=== PATIENT | female | born 1985 | race African-American/Black ===

== ENCOUNTER 2016-12-23 09:32 | Inpatient (IN) | payer MEDICAID, OTHER ==
[~2016-12-23 09:32] MED LIST: ATIVAN0.5 M1 PO; CHLORASEPTIC SO2 LOZ MT; COMPAZINE10 MG PO; MAGIC MOUTHWASH PO; MONO-LINYAH 281 EACH PO; NAPROXEN500 M1 PO; NICOTINE PATCH1 EAC1 TD; NICOTINE PATCH1 EACH TD; NO HOME MEDICATION XX; NORCO 5-325 TA1 EACH PO; PROAIR HFA8.5 GM IH; PROMETH-CODEIN 65 ML PO; PROMETHAZINE-C118 ML PO; TUSSIONEX PENN480 ML PO; TYLENOL325 M2 PO; VENTOLIN HFA18 G2 PO; ZITHROMAX250 M1 PO; ZOFRAN4 M2 PO; ZOLOFT100 M1 PO; ZOLOFT25 M1 PO
[2016-12-23] MEDS ORDERED: K-TAB ER10 MEQ PO (10:04)
[2016-12-24 04:36] LABS: ALB/GLOB RATIO 0.8 (0.8-2.0); ALBUMIN 3.5 g/dl (3.5-5.0); ALKALINE PHOSPHATASE 85 U/L (33-138); ALT/SGPT 17 U/L (12-78); BILIRUBIN,TOTAL 0.2 mg/dl (0-1.5); BLOOD UREA NITROGEN 12 mg/dl (6-24); CALCIUM 9.2 mg/dl (8.5-10.5); CARBON DIOXIDE-VENOUS 24 mmol/L (22-32); CHLORIDE 108 mmol/l (96-110); GLUCOSE 239 mg/dL (70-110); SODIUM 139 mmol/L (135-145); eGFR VALUE FOR BLACK 88 mL/Min
[2016-12-24 05:01] LABS: ANION GAP 12 mmol/L (0-20); AST/SGOT 14 U/L (10-40); MAGNESIUM 1.8 mg/dl (1.3-2.6); POTASSIUM 4.5 mmol/L (3.7-5.1)
[2016-12-25 17:06] LABS: URINE BILIRUBIN NEGATIVE (NEG); URINE BLOOD SMALL (NEG); URINE GLUCOSE (UA) SMALL (NEG); URINE KETONE LARGE (NEG); URINE LEUKOCYTE ESTERASE NEGATIVE (NEG); URINE NITRITE NEGATIVE (NEG); URINE PROTEIN NEGATIVE (NEG); URINE SPECIFIC GRAVITY 1.015 (1.003-1.030)
[2016-12-25 17:09] LABS: URINE APPEARANCE HAZY; URINE COLOR YELLOW
[2016-12-25 17:34] LABS: URINE AMORPHOUS 1+; URINE WBC RARE /[HPF] (0-5)
[2016-12-26 05:48] LABS: ALB/GLOB RATIO 0.8 (0.8-2.0); ALKALINE PHOSPHATASE 54 U/L (33-138); ALT/SGPT 15 U/L (12-78); BILIRUBIN,TOTAL 0.5 mg/dl (0-1.5); BLOOD UREA NITROGEN 10 mg/dl (6-24); CALCIUM 8.4 mg/dl (8.5-10.5); CARBON DIOXIDE-VENOUS 24 mmol/L (22-32); CHLORIDE 109 mmol/l (96-110); CREATININE 0.79 mg/dl (0.50-1.10); GLUCOSE 83 mg/dL (70-110); SODIUM 139 mmol/L (135-145); eGFR VALUE FOR BLACK >90 mL/Min
[2016-12-26 05:59] LABS: ANION GAP 10 mmol/L (0-20); AST/SGOT 18 U/L (10-40); MAGNESIUM 2.1 mg/dl (1.3-2.6); POTASSIUM 4.4 mmol/L (3.7-5.1)
[2016-12-26 16:25] LABS: URINE APPEARANCE HAZY; URINE BILIRUBIN NEGATIVE (NEG); URINE BLOOD SMALL (NEG); URINE COLOR PALE YELLOW; URINE GLUCOSE (UA) NEGATIVE (NEG); URINE KETONE NEGATIVE (NEG); URINE LEUKOCYTE ESTERASE POSITIVE (NEG); URINE NITRITE NEGATIVE (NEG); URINE PROTEIN NEGATIVE (NEG)
[2016-12-26 16:38] LABS: URINE BACTERIA 4+
== END 2016-12-26 16:39 | DRG 847 ==
LOC: 5WF 09:32 → ORE 12-24 14:22 → PACU 12-24 14:52 → 5WF 12-24 15:40
PROVIDERS: Internal Medicine Hematology & Oncology; Physician Assistant Medical; ADMIT Internal Medicine Hematology & Oncology
PROC: 0CDXXZ0 Extraction of Lower Tooth, Single, External Approach (ICD-10-PCS; principal; 2016-12-23)
DX: Z51.11 Encounter for antineoplastic chemotherapy (principal); C85.90 Non-Hodgkin lymphoma, unspecified, unspecified site; R11.0 Nausea; K04.7 Periapical abscess without sinus
CPT/HCPCS: J1100; J1626; J1650; J2469; J2505; J7030; J9045; J9181; J9208; J9209

== ENCOUNTER 2017-01-27 19:47 | Emergency (ER) | payer MEDICAID ==
[~2017-01-27 19:47] MED LIST changes: +K-TAB ER10 MEQ PO
[2017-01-27 21:01] LABS: BASO % 0.6 % (0-2); BASO ABSOLUTE COUNT 0.1 tho/cmm (0.0-0.2); EOSINOPHIL ABSOLUTE COUNT 0.2 tho/cmm (0.0-0.7); HCT-HEMATOCRIT 29.1 % (34.0-49.0); HGB-HEMOGLOBIN 9.8 gm/dl (12.0-15.5); IMMATURE GRANULOCYTES ABSOLUTE 0.03 tho/cmm (0-0.03); IMMATURE GRANULOCYTES PERCENT 0.3 % (0-0.3); LYMPH % 16.4 % (20-45); LYMPH ABSOLUTE COUNT 1.8 tho/cmm (0.8-4.5); MCH (MEAN CORPUSCULAR HGB) 29.3 pg (28.0-32.0); MCHC MEAN CORPUSCULAR HGB CONC 33.7 % (32.0-36.0); MCV (MEAN CELL VOLUME) 87.1 fl (82.0-96.0); MEAN PLATELET VOLUME 9.4 cmc (9.4-12.4); MONO % 7.8 % (0-12); MONOCYTE ABSOLUTE COUNT 0.8 tho/cmm (0.0-1.2); NEUTROPHIL ABSOLUTE COUNT 7.8 tho/cmm (1.6-8.0); NEUTROPHIL-AUTOMATED 7.8 tho/cmm (1.6-8.0); NEUTROPHILS % 72.9 % (40-80); PLATELET COUNT 396 tho/cmm (150-450); RED BLOOD COUNT 3.34 mil/cmm (4.00-5.20); RED CELL DISTRIBUTION WIDTH 17.6 % (12.4-16.4); WHITE BLOOD COUNT 10.8 tho/cmm (4.0-10.0)
[2017-01-27 21:13] LABS: ANION GAP 15 mmol/L (0-20); BLOOD UREA NITROGEN 7 mg/dl (6-24); CALCIUM 8.5 mg/dl (8.5-10.5); CARBON DIOXIDE-VENOUS 24 mmol/L (22-32); CHLORIDE 106 mmol/l (96-110); CREATININE 1.02 mg/dl (0.50-1.10); GLUCOSE 123 mg/dL (70-110); POTASSIUM 3.5 mmol/L (3.7-5.1); SODIUM 141 mmol/L (135-145); eGFR VALUE FOR BLACK 86 mL/Min
[2017-01-27] MEDS ORDERED: NORCO 5-325 TA1 EACH PO (22:51)
[2017-01-27] MEDS ORDERED: KEFLEX500 M4 PO (22:51)
[2017-01-27] MEDS ORDERED: BACTRIM DS TAB1 EAC2 PO (22:51)
== END 2017-01-27 23:17 ==
LOC: EDMED 19:47
PROVIDERS: Emergency Medicine
PROC: 0H97XZZ Drainage of Abdomen Skin, External Approach (ICD-10-PCS; principal; 2017-01-27)
DX: K61.1 Rectal abscess (principal)
CPT/HCPCS: J1170; J2405; Q9967

== ENCOUNTER 2017-02-25 19:46 | Emergency (ER) | payer MEDICAID ==
[~2017-02-25 19:46] MED LIST changes: +BACTRIM DS TAB1 EAC2 PO; +KEFLEX500 M4 PO
[2017-02-25] MEDS ORDERED: PRENATAL TABLE1 EAC3 PO (20:59)
[2017-02-25 22:01] LABS: BASO % 0.6 % (0-2); EOS % 5.2 % (0-7); EOSINOPHIL ABSOLUTE COUNT 0.3 tho/cmm (0.0-0.7); HCT-HEMATOCRIT 33.4 % (34.0-49.0); HGB-HEMOGLOBIN 11.1 gm/dl (12.0-15.5); IMMATURE GRANULOCYTES ABSOLUTE 0.01 tho/cmm (0-0.03); IMMATURE GRANULOCYTES PERCENT 0.2 % (0-0.3); LYMPH % 42.6 % (20-45); LYMPH ABSOLUTE COUNT 2.8 tho/cmm (0.8-4.5); MCH (MEAN CORPUSCULAR HGB) 29.9 pg (28.0-32.0); MCHC MEAN CORPUSCULAR HGB CONC 33.2 % (32.0-36.0); MONO % 8.9 % (0-12); MONOCYTE ABSOLUTE COUNT 0.6 tho/cmm (0.0-1.2); NEUTROPHIL ABSOLUTE COUNT 2.8 tho/cmm (1.6-8.0); NEUTROPHIL-AUTOMATED 2.8 tho/cmm (1.6-8.0); NEUTROPHILS % 42.5 % (40-80); PLATELET COUNT 304 tho/cmm (150-450); RED BLOOD COUNT 3.71 mil/cmm (4.00-5.20); RED CELL DISTRIBUTION WIDTH 16.2 % (12.4-16.4); WHITE BLOOD COUNT 6.5 tho/cmm (4.0-10.0)
[2017-02-25 22:13] LABS: ANION GAP 11 mmol/L (0-20); BLOOD UREA NITROGEN 9 mg/dl (6-24); CALCIUM 8.7 mg/dl (8.5-10.5); CARBON DIOXIDE-VENOUS 26 mmol/L (22-32); CHLORIDE 106 mmol/l (96-110); CREATININE 0.89 mg/dl (0.50-1.10); GLUCOSE 90 mg/dL (70-110); SODIUM 139 mmol/L (135-145); eGFR VALUE FOR BLACK >90 mL/Min
== END 2017-02-26 00:11 ==
LOC: EDMED 19:46
PROVIDERS: Physician Assistant
DX: O20.9 Hemorrhage in early pregnancy, unspecified (principal); D64.9 Anemia, unspecified; Z3A.08 8 weeks gestation of pregnancy

== ENCOUNTER 2017-06-05 16:17 | Emergency (ER) | payer MEDICAID ==
[~2017-06-05] VITALS: Ht 170.2 cm; Wt 122.5 kg
[~2017-06-05 16:17] MED LIST changes: +PRENATAL TABLE1 EAC3 PO
[2017-06-05] MEDS ORDERED: NO HOME MEDICATION XX (16:48)
[2017-06-05] MEDS ORDERED: BACTRIM DS TAB1 EAC2 PO (18:21)
== END 2017-06-05 18:33 ==
LOC: EDMED 16:17
PROC: 0H96XZZ Drainage of Back Skin, External Approach (ICD-10-PCS; principal; 2017-06-05)
DX: L02.212 Cutaneous abscess of back [any part, except buttock and flank] (principal); E66.9 Obesity, unspecified; F17.210 Nicotine dependence, cigarettes, uncomplicated; Z85.71 Personal history of Hodgkin lymphoma